=== PATIENT | male | born 2005 | race Caucasian/White ===

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

== ENCOUNTER → 2025-06-03 | Outpatient (REF) | payer OTHER ==
[~2025-06-03] MED LIST changes: +DOXY-440 PO; -DOXY-444 PO
[2025-06-03 15:54] LABS: GC DNA AMPLIFICATION NEGATIVE (NEGATIVE)
[2025-06-03 15:55] LABS: GC DNA AMPLIFICATION NEGATIVE (NEGATIVE)
[2025-06-03 15:57] LABS: GC DNA AMPLIFICATION NEGATIVE (NEGATIVE)
== END ==
LOC: M SFHCPLAZ 12:11
PROVIDERS: ATTEND Internal Medicine Infectious Disease
DX: Z11.3 Encounter for screening for infections with a predominantly sexual mode of transmission (principal)

== ENCOUNTER → 2025-06-14 | Outpatient (CLI) | payer OTHER ==
[2025-06-14 18:57] LABS: BASO # 0.1 10^3/uL (0.0-0.2); BASO % 1.0 % (0.0-1.0); EOS # 0.3 10^3/uL (0.0-0.5); EOS % 2.9 % (0.0-3.0); LYMPH # 2.2 10^3/uL (1.5-5.0); LYMPH % 22.6 % (24.0-44.0); MONO # 1.1 10^3/uL (0.0-0.8); MONO % 11.0 % (2.0-8.0); NEUTROPHILS # 6.1 10^3/uL (1.5-8.5); NEUTROPHILS % 62.1 % (36.0-66.0); PLATELET COUNT, AUTOMATED 321 10^3/uL (150-450)
[2025-06-14 19:22] LABS: ALT/SGPT 89 U/L (7.0-40); AST/SGOT 32 U/L (<34); CALCIUM LEVEL 9.7 MG/DL (8.5-10.1); CARBON DIOXIDE LEVEL 29 MMOL/L (20-31); CHLORIDE LEVEL 98 MMOL/L (98-107); CREATININE FOR GFR 0.76 MG/DL (0.70-1.30); GLOMERULAR FILTRATION RATE > 90.0 (>60); POTASSIUM SERUM 3.6 MMOL/L (3.5-5.1); SODIUM LEVEL 137 MMOL/L (136-145)
[2025-06-14 19:24] LABS: HEPATITIS B SURFACE ANTIBODY NEGATIVE (POSITIVE)
[2025-06-14 19:49] LABS: HIV 1&2 SCREEN NEGATIVE (NEGATIVE)
[2025-06-14 19:57] LABS: HEPATITIS C VIRUS ABY INDEX < 0.02 INDEX (<0.8)
== END ==
LOC: M WUC 15:56
PROVIDERS: ATTEND Internal Medicine Infectious Disease
DX: Z11.59 Encounter for screening for other viral diseases (principal); Z20.6 Contact with and (suspected) exposure to human immunodeficiency virus [HIV]; Z11.3 Encounter for screening for infections with a predominantly sexual mode of transmission

== ENCOUNTER → 2025-09-06 | Outpatient (CLI) | payer OTHER ==
[2025-09-06 14:32] LABS: CALCIUM LEVEL 9.8 MG/DL (8.5-10.1); CARBON DIOXIDE LEVEL 31 MMOL/L (20-31); CHLORIDE LEVEL 104 MMOL/L (98-107); CREATININE FOR GFR 0.83 MG/DL (0.70-1.30); GLOMERULAR FILTRATION RATE > 90.0 (>60); POTASSIUM SERUM 4.5 MMOL/L (3.5-5.1); SODIUM LEVEL 141 MMOL/L (136-145)
== END ==
LOC: M LAB 13:30
PROVIDERS: ATTEND Internal Medicine Infectious Disease
DX: Z20.6 Contact with and (suspected) exposure to human immunodeficiency virus [HIV] (principal)